=== PATIENT | female | born 1975 | race Asian ===

== ENCOUNTER 2017-08-31 01:23 | Inpatient (IN) | payer SELFPAY ==
[~2017-08-31] VITALS: Ht 170 cm; Wt 88.0 kg
[2017-08-31] MEDS ORDERED: PREN-546 PO (01:49)
[2017-08-31] MEDS ORDERED: FERR-252 PO (01:51)
[2017-08-31] MEDS ORDERED: OXYTOCIN 20 UNITS in LACTATED RINGERS 1,000 ML IV SCH (02:45)
[2017-08-31 03:18] LABS: APPEARANCE,URINE CLEAR (CLEAR); BILIRUBIN,URINE NEGATIVE (NEGATIVE); BLOOD, URINE NEGATIVE (NEGATIVE); COLOR,URINE YELLOW (YELLOW); LEUKOCYTE ESTERASE ,URINE NEGATIVE (NEGATIVE); NITRITE, URINE NEGATIVE (NEGATIVE); PH,URINE 6.5 (5.0-9.0); UGLUCOSE NEGATIVE (NEGATIVE)
[2017-08-31 03:18] LABS: BASOPHILS # (AUTO) 0.1 K/uL (0.00-0.22); BASOPHILS % (AUTO) 1.1 % (0.0-2.0); EOSINOPHILS # (AUTO) 0.1 K/uL (0-0.4); EOSINOPHILS % (AUTO) 0.9 % (0.0-4.0); HEMOGLOBIN 13.4 g/dL (12.0-16.0); LYMPHOCYTES % (AUTO) 16.6 % (20.5-51.1); MEAN CORPUSCULAR HEMOGLOBIN 31 pg (27-31); MEAN CORPUSCULAR HGB CONC 34 g/dL (33-37); MEAN CORPUSCULAR VOLUME 93 fL (80-94); MONOCYTES # (AUTO) 0.4 K/uL (0.8-1.0); MONOCYTES % (AUTO) 5.7 % (1.7-9.3); NEUTROPHILS # (AUTO) 4.7 K/uL (1.8-7.7); NEUTROPHILS % (AUTO) 75.7 % (42.2-75.2); PLATELET COUNT (AUTO) 119 K/uL (140-450); RED BLOOD CELL COUNT(AUTO) 4.29 MIL/uL (4.20-5.40); RED CELL DISTRIBUTION WIDTH 12.7 % (11.6-13.7); WHITE BLOOD COUNT (AUTO) 6.3 K/uL (4.8-10.8)
[2017-08-31 03:54] LABS: FIBRINOGEN 297 mg/dL (200-400)
[2017-08-31] MEDS ORDERED: MISOPROSTOL 25 MCG TAB VG SCH (04:00)
[2017-08-31 04:13] LABS: PROTHROMBIN TIME 9.5 secs (10.8-13.4)
[2017-08-31 04:15] LABS: D-DIMER 1870 ng/ml (0-400)
[2017-08-31 04:20] LABS: ALBUMIN 2.7 g/dL (3.4-5.0); ANION GAP 14.9 (8-16); CARBON DIOXIDE 20.8 mmol/L (21-32); CREATININE 0.6 mg/dL (0.6-1.3); POTASSIUM 3.7 mmol/L (3.5-5.1); TOTAL BILIRUBIN 0.2 mg/dL (0.0-1.0)
[2017-08-31] MEDS: LACTATED RINGERS 1,000 ML IV SCH ×2 (04:39→12:03)
[2017-08-31] MEDS ORDERED: MISOPROSTOL 200 MCG TAB ONE (04:51)
[2017-08-31 05:55] VITALS: BP 125/78
[2017-08-31] MEDS ORDERED: INFLUENZA VIRUS VACCINE QUAD 0.5 ML SYR IMVAC SCH (07:00)
[2017-08-31] MEDS ORDERED: NALBUPHINE 10 MG/ML AMP IVP PRN (08:35)
[2017-08-31] MEDS ORDERED: OXYTOCIN 10 UNITS/ML VIAL IM SCH (08:35)
[2017-08-31] MEDS ORDERED: PROMETHAZINE 25 MG/ML VIAL IVP PRN ×2 (08:35→08:55)
--- NOTE | 2017-08-31 08:47 | NUR ---
PATIENT HAS BEEN SCREENED AND CATEGORIZED LOW NUTRITION RISK. PATIENT WILL BE SEEN WITHIN 7 DAYS OF ADMISSION. 09/06/[address]
[2017-08-31] MEDS ORDERED: NALBUPHINE HYDROCHLORIDE 10 MG/ML VIAL ONE (09:01)
[2017-08-31] MEDS ORDERED: PROMETHAZINE 25 MG/ML VIAL ONE (09:02)
[2017-08-31] MEDS ORDERED: MORPHINE SULFATE 10 MG/ML SYR IVP PRN (13:05)
[2017-08-31] MEDS ORDERED: MORPHINE SULFATE 10 MG/ML SYR ONE (13:20)
[2017-08-31] MEDS ORDERED: OXYTOCIN 10 UNITS/ML VIAL ONE (13:27)
[2017-08-31] MEDS ORDERED: LIDOCAINE 1% 50 ML ONE (13:27)
[2017-08-31] MEDS ORDERED: OXYTOCIN 20 UNITS/LR PREMIX 1,000 ML IV ONE (13:49)
[2017-09-01] MEDS ORDERED: OXYTOCIN 10 UNITS/ML VIAL IM PRN (19:10)
[2017-09-01] MEDS ORDERED: TEMAZEPAM 15 MG CAP PO PRN (19:10)
[2017-09-01] MEDS ORDERED: METHYLERGONOVINE 0.2 MG/ML AMP IM PRN (19:10)
[2017-09-01] MEDS ORDERED: INFLUENZA VIRUS VACCINE QUAD 0.5 ML SYR IMVAC SCH (19:10)
[2017-09-01] MEDS ORDERED: IBUPROFEN 800 MG TAB PO PRN (19:10)
[2017-09-01] MEDS ORDERED: BENZOCAINE/MENTHOL 20%-0.5% 60 GM CAN TP PRN (19:10)
[2017-09-01] MEDS ORDERED: MEASLES, MUMPS, AND RUBELLA 1 VIAL SQVAC PRN (19:10)
[2017-09-01] MEDS ORDERED: HYDROcodone/APAP 5/325 MG 1 TAB TAB PO PRN (19:10)
[2017-09-01] MEDS ORDERED: oxyCODONE/APAP 5/325 MG 1 TAB TAB PO PRN (19:10)
[2017-09-01 20:22] LABS: PROTHROMBIN TIME 9.9 secs (10.8-13.4)
[2017-09-01] MEDS ORDERED: DOCUSATE SOD/SENNA 50/8.6 MG 1 TAB PO SCH (21:00)
[2017-09-02 04:00] LABS: MEAN CORPUSCULAR HEMOGLOBIN 32 pg (27-31); MEAN CORPUSCULAR HGB CONC 34 g/dL (33-37); MEAN CORPUSCULAR VOLUME 94 fL (80-94); PLATELET COUNT (AUTO) 132 K/uL (140-450); RED BLOOD CELL COUNT(AUTO) 4.12 MIL/uL (4.20-5.40); RED CELL DISTRIBUTION WIDTH 14.1 % (11.6-13.7); WHITE BLOOD COUNT (AUTO) 8.8 K/uL (4.8-10.8)
[2017-09-02 04:01] LABS: BASOPHILS % (AUTO) 0.3 % (0.0-2.0); EOSINOPHILS % (AUTO) 0.3 % (0.0-4.0); LYMPHOCYTES % (AUTO) 16.1 % (20.5-51.1); NEUTROPHILS % (AUTO) 78.3 % (42.2-75.2)
== END 2017-09-02 12:06 | disposition home or self-care (01) | DRG 775 ==
LOC: MFCC 01:23
PROVIDERS: ADMIT Obstetrics & Gynecology; ATTEND Obstetrics & Gynecology
PROC: 10E0XZZ Delivery of Products of Conception, External Approach (ICD-10-PCS; principal; 2017-08-31)
PROC: 0HQ9XZZ Repair Perineum Skin, External Approach (ICD-10-PCS; 2017-08-31)
PROC: 3E0P7VZ Introduction of Hormone into Female Reproductive, Via Natural or Artificial Opening (ICD-10-PCS; 2017-08-31)
DX: O70.0 First degree perineal laceration during delivery (principal); Z37.1 Single stillbirth; Z28.21 Immunization not carried out because of patient refusal; Z3A.39 39 weeks gestation of pregnancy
CPT/HCPCS: 36415; 59200; 59409; 76805; 80053; 81003; 85018; 85025; 85379; 85384; 85610; 85730; 86592; 86886; 86900; 86901; J2001; J2270; J2300; J2550; J2590; J7120; Q0092